=== PATIENT | male | born 1955 | race Hispanic/Latino ===

== ENCOUNTER 2022-12-01 20:33 | Inpatient (IN) | payer OTHER ==
[~2022-12-01] VITALS: Ht 172.7 cm; Wt 63.1 kg
[2022-12-01 21:08] LABS: SARS-CoV-2, RNA, NAAT NEGATIVE SARS CoV-2 (NEGATIVE)
[2022-12-01 21:14] LABS: INFLUENZA TYPE A Negative For Type A (NEGATIVE); INFLUENZA TYPE B Negative For Type B (NEGATIVE)
[2022-12-01 21:48] LABS: BASOPHILS # (AUTO) 0.04 K/uL (0.00-0.20); BASOPHILS % (AUTO) 0.3 % (0.0-5.0); EOSINOPHILS # (AUTO) 0.08 K/uL (0.00-0.70); EOSINOPHILS % (AUTO) 0.5 % (0.0-8.0); HEMATOCRIT 33.8 % (42-54); IMMATURE GRANULOCYTE ABSOLUTE 0.17 K/uL (0-1); LYMPHOCYTES # (AUTO) 0.7 K/uL (1.0-4.8); LYMPHOCYTES % (AUTO) 4.9 % (21.0-51.0); MEAN CORPUSCULAR HEMOGLOBIN 29.2 pg (27.0-33.0); MEAN CORPUSCULAR HGB CONC 34.9 g/dL (32.0-36.0); MEAN CORPUSCULAR VOLUME 83.7 fL (79-99); MONOCYTES # (AUTO) 1.2 K/uL (0.1-1.0); MONOCYTES % (AUTO) 7.7 % (3.0-13.0); NEUTROPHILS # (AUTO) 12.8 K/uL (1.8-7.7); NEUTROPHILS % (AUTO) 85.5 % (40.0-77.0); PLATELET COUNT (AUTO) 389 K/uL (130-400); RED BLOOD CELL COUNT(AUTO) 4.04 MIL/uL (4.50-6.20); RED CELL DISTRIBUTION WIDTH 12.8 % (11.0-15.5)
[2022-12-01] MEDS ORDERED: SODI650T PO (21:55)
[2022-12-01] MEDS ORDERED: PANT20TA18 PO (21:56)
[2022-12-01] MEDS ORDERED: BENZ1TAB83 PO (21:56)
[2022-12-01] MEDS ORDERED: ROSU20TA73 PO (21:57)
[2022-12-01] MEDS ORDERED: LISI5TAB21 PO (21:58)
[2022-12-01] MEDS ORDERED: DIPH1TAB24 PO (21:58)
[2022-12-01] MEDS ORDERED: CARV3.12 PO (21:59)
[2022-12-01] MEDS ORDERED: RISP4TAB73 PO (21:59)
[2022-12-01] MEDS ORDERED: FERS325 PO (22:00)
[2022-12-01] MEDS ORDERED: 0.9%NACL 1000ML 2,000 ML IV ONE (22:00)
[2022-12-01] MEDS ORDERED: TRAM50TA4 PO (22:00)
[2022-12-01] MEDS ORDERED: MESA500C PO (22:01)
[2022-12-01 22:02] LABS: ALBUMIN 3.9 g/dL (3.5-5.0); BILIRUBIN,TOTAL 0.7 mg/dL (0.2-1.0); CREATININE 3.1 mg/dL (0.5-1.5); POTASSIUM 3.9 mmol/L (3.5-5.1); TOTAL PROTEIN, SERUM 8.3 g/dL (6.0-8.3)
[2022-12-02] VITALS (9 sets, daily range): BP systolic 127–157; BP diastolic 62–75; PULSE 77–90; RESP 16–20; O2SAT 95–97
[2022-12-02] MEDS ORDERED: MAGNESIUM 2GM PREMIX 50ML 50 ML IV PRN
[2022-12-02] MEDS: LACTATED RINGERS 1000ML 1,000 ML IV SCH ×3 (00:14→19:27)
[2022-12-02] MEDS ORDERED: HYDROMORPHONE 1 MG INJ IVP STA (02:38)
[2022-12-02 03:42] LABS: BASOPHILS # (AUTO) 0.03 K/uL (0.00-0.20); BASOPHILS % (AUTO) 0.3 % (0.0-5.0); EOSINOPHILS # (AUTO) 0.04 K/uL (0.00-0.70); EOSINOPHILS % (AUTO) 0.4 % (0.0-8.0); HEMATOCRIT 31.9 % (42-54); IMMATURE GRANULOCYTE ABSOLUTE 0.12 K/uL (0-1); LYMPHOCYTES # (AUTO) 0.9 K/uL (1.0-4.8); LYMPHOCYTES % (AUTO) 8.4 % (21.0-51.0); MEAN CORPUSCULAR HEMOGLOBIN 28.9 pg (27.0-33.0); MEAN CORPUSCULAR HGB CONC 34.8 g/dL (32.0-36.0); MEAN CORPUSCULAR VOLUME 83.1 fL (79-99); MONOCYTES # (AUTO) 1.1 K/uL (0.1-1.0); MONOCYTES % (AUTO) 10.4 % (3.0-13.0); NEUTROPHILS # (AUTO) 8.6 K/uL (1.8-7.7); NEUTROPHILS % (AUTO) 79.4 % (40.0-77.0); PLATELET COUNT (AUTO) 362 K/uL (130-400); RED BLOOD CELL COUNT(AUTO) 3.84 MIL/uL (4.50-6.20); RED CELL DISTRIBUTION WIDTH 12.7 % (11.0-15.5); WHITE BLOOD COUNT (AUTO) 10.8 K/uL (4.8-10.8)
[2022-12-02 04:02] LABS: ALBUMIN 3.4 g/dL (3.5-5.0); BILIRUBIN,TOTAL 0.7 mg/dL (0.2-1.0); MAGNESIUM 2.1 mg/dL (1.80-2.40); POTASSIUM 3.1 mmol/L (3.5-5.1); TOTAL PROTEIN, SERUM 7.3 g/dL (6.0-8.3)
[2022-12-02] MEDS: POTASSIUM CHLORIDE 20MEQ/100ML 100 ML IV PRN ×2 (04:14→06:20)
[2022-12-02 06:05] LABS: APPEARANCE,URINE CLOUDY (CLEAR); BILIRUBIN,URINE NEGATIVE (NEGATIVE); COLOR,URINE YELLOW (YELLOW); GLUCOSE, URINE (UA) NEGATIVE (NEGATIVE); KETONES,URINE 5 mg/dL (NEGATIVE); LEUKOCYTE ESTERASE ,URINE NEGATIVE Leu/uL (NEGATIVE); NITRATE,URINE NEGATIVE (NEGATIVE); OCCULT BLOOD,URINE SMALL (NEGATIVE); PROTEIN,URINE 30 mg/dL (NEGATIVE); UROBILINOGEN,URINE 0.2 mg/dL (0.2-1.0)
[2022-12-02 06:08] LABS: ADD UA MICROSCOPIC YES
[2022-12-02 06:10] LABS: MUCUS,URINE RARE LPF (None Seen); SQUAMOUS EPITHELIAL CELL,UR RARE /HPF (0-2)
[2022-12-02] MEDS: METRONIDAZOLE 500MG/100ML BAG 100 ML IVPB SCH ×3 (06:11→20:38)
[2022-12-02] MEDS ORDERED: LACTATED RINGERS 1000ML IV ONE (08:30)
[2022-12-02] MEDS: ONDANSETRON 4MG INJ IV PRN ×2 (08:38→19:36)
[2022-12-02] MEDS: CEFTRIAXONE 1G VIAL IVPB SCH ×2 (08:38→19:27)
[2022-12-02] MEDS: PANTOPRAZOLE 40 MG/VIAL IVP SCH (08:38)
[2022-12-03] VITALS (9 sets, daily range): BP systolic 117–145; BP diastolic 59–73; PULSE 67–84; RESP 16–20; O2SAT 97–98
[2022-12-03 04:38] LABS: INR 1.09 (0.85-1.15); PROTHROMBIN TIME 12.6 SEC (9.6-11.6)
[2022-12-03 04:39] LABS: PARTIAL THROMBOPLASTIN TIME 29.3 SEC (26.3-35.5)
[2022-12-03] MEDS: METRONIDAZOLE 500MG/100ML BAG 100 ML IVPB SCH ×3 (05:04→21:03)
[2022-12-03] MEDS: LACTATED RINGERS 1000ML 1,000 ML IV SCH ×2 (05:04→16:00)
[2022-12-03] MEDS: PANTOPRAZOLE 40 MG/VIAL IVP SCH (08:57)
[2022-12-03] MEDS: CEFTRIAXONE 1G VIAL IVPB SCH ×2 (08:57→19:28)
[2022-12-03 09:20] LABS: BASOPHILS # (AUTO) 0.03 K/uL (0.00-0.20); BASOPHILS % (AUTO) 0.3 % (0.0-5.0); EOSINOPHILS # (AUTO) 0.17 K/uL (0.00-0.70); EOSINOPHILS % (AUTO) 1.9 % (0.0-8.0); HEMATOCRIT 29.4 % (42-54); IMMATURE GRANULOCYTE ABSOLUTE 0.08 K/uL (0-1); LYMPHOCYTES # (AUTO) 1.4 K/uL (1.0-4.8); LYMPHOCYTES % (AUTO) 15.4 % (21.0-51.0); MEAN CORPUSCULAR HEMOGLOBIN 29.6 pg (27.0-33.0); MONOCYTES # (AUTO) 1.1 K/uL (0.1-1.0); MONOCYTES % (AUTO) 12.3 % (3.0-13.0); NEUTROPHILS # (AUTO) 6.1 K/uL (1.8-7.7); NEUTROPHILS % (AUTO) 69.2 % (40.0-77.0); PLATELET COUNT (AUTO) 341 K/uL (130-400); RED BLOOD CELL COUNT(AUTO) 3.38 MIL/uL (4.50-6.20); RED CELL DISTRIBUTION WIDTH 12.9 % (11.0-15.5); WHITE BLOOD COUNT (AUTO) 8.8 K/uL (4.8-10.8)
[2022-12-03 09:29] LABS: ALBUMIN 2.7 g/dL (3.5-5.0); BILIRUBIN,TOTAL 0.6 mg/dL (0.2-1.0); POTASSIUM 3.3 mmol/L (3.5-5.1); TOTAL PROTEIN, SERUM 6.2 g/dL (6.0-8.3)
[2022-12-03] MEDS: POTASSIUM CHLORIDE 20MEQ/100ML 100 ML IV PRN (10:47)
[2022-12-03] MEDS: POTASSIUM CHLORIDE 10% ELIXIR 20 MEQ/15 ML UDCUP PO PRN ×3 (17:38→19:29)
[2022-12-04] VITALS (7 sets, daily range): BP systolic 93–151; BP diastolic 49–87; PULSE 68–89; RESP 16–19; O2SAT 96–98
[2022-12-04] MEDS: LACTATED RINGERS 1000ML 1,000 ML IV SCH ×3 (01:52→22:00)
[2022-12-04 04:21] LABS: BASOPHILS # (AUTO) 0.03 K/uL (0.00-0.20); BASOPHILS % (AUTO) 0.3 % (0.0-5.0); EOSINOPHILS # (AUTO) 0.06 K/uL (0.00-0.70); EOSINOPHILS % (AUTO) 0.6 % (0.0-8.0); HEMATOCRIT 28.3 % (42-54); IMMATURE GRANULOCYTE ABSOLUTE 0.09 K/uL (0-1); LYMPHOCYTES # (AUTO) 1.5 K/uL (1.0-4.8); LYMPHOCYTES % (AUTO) 14.3 % (21.0-51.0); MEAN CORPUSCULAR HEMOGLOBIN 28.9 pg (27.0-33.0); MEAN CORPUSCULAR HGB CONC 33.2 g/dL (32.0-36.0); MEAN CORPUSCULAR VOLUME 87.1 fL (79-99); MONOCYTES # (AUTO) 0.9 K/uL (0.1-1.0); MONOCYTES % (AUTO) 8.5 % (3.0-13.0); NEUTROPHILS # (AUTO) 7.7 K/uL (1.8-7.7); NEUTROPHILS % (AUTO) 75.4 % (40.0-77.0); PLATELET COUNT (AUTO) 252 K/uL (130-400); RED BLOOD CELL COUNT(AUTO) 3.25 MIL/uL (4.50-6.20); RED CELL DISTRIBUTION WIDTH 12.8 % (11.0-15.5); WHITE BLOOD COUNT (AUTO) 10.2 K/uL (4.8-10.8)
[2022-12-04 04:40] LABS: PHOSPHORUS 2.3 mg/dL (2.5-4.9); POTASSIUM 3.8 mmol/L (3.5-5.1)
[2022-12-04] MEDS: METRONIDAZOLE 500MG/100ML BAG 100 ML IVPB SCH ×3 (05:07→23:06)
[2022-12-04] MEDS: PANTOPRAZOLE 40 MG/VIAL IVP SCH (09:57)
[2022-12-04] MEDS: KCL 20 MEQ ERTAB PO PRN ×2 (09:57→12:21)
[2022-12-04] MEDS: CEFTRIAXONE 1G VIAL IVPB SCH ×2 (09:57→22:08)
[2022-12-04] MEDS: RISPERIDONE 1 MG TABLET PO SCH (10:04)
[2022-12-04] MEDS ORDERED: ACETAMINOPHEN 325 MG TAB PO PRN ×3 (12:00→12:30)
[2022-12-04] MEDS: TRAMADOL HCL 50 MG TABLET PO PRN (17:41)
[2022-12-04 18:15] LABS: INR 1.21 (0.85-1.15); PROTHROMBIN TIME 13.9 SEC (9.6-11.6)
[2022-12-04] MEDS ORDERED: MULT-1278 PO (18:46)
[2022-12-04] MEDS ORDERED: CHOL-34 PO (18:46)
[2022-12-05 03:48] VITALS: BP 127/68; PULSE 76; RESP 17
[2022-12-05 04:26] LABS: CREATININE 0.9 mg/dL (0.5-1.5); POTASSIUM 3.9 mmol/L (3.5-5.1)
[2022-12-05 04:40] LABS: % IRON SATURATION 27.7 % (30-44)
[2022-12-05] MEDS: METRONIDAZOLE 500MG/100ML BAG 100 ML IVPB SCH ×2 (06:18→14:12)
[2022-12-05 08:00] VITALS: BP 143/81; PULSE 96; RESP 16; O2SAT 96
[2022-12-05] MEDS: LACTATED RINGERS 1000ML 1,000 ML IV SCH (08:00)
[2022-12-05] MEDS: PANTOPRAZOLE 40 MG/VIAL IVP SCH (09:01)
[2022-12-05] MEDS: CEFTRIAXONE 1G VIAL IVPB SCH (09:02)
[2022-12-05] MEDS: RISPERIDONE 1 MG TABLET PO SCH (09:06)
[2022-12-05] MEDS ORDERED: CHOL-34 PO (11:13)
[2022-12-05] MEDS ORDERED: COMPOUND IV REFRIGERATED 1 EACH IVSOLN MISC PRN (11:30)
[2022-12-05 12:00] VITALS: BP 123/64; PULSE 97; RESP 16
[2022-12-05] MEDS ORDERED: NACL 0.9% IV ONE (14:00)
[2022-12-05] MEDS ORDERED: IRON SUCROSE COMPLEX IV ONE (14:00)
[2022-12-05] MEDS: TRAMADOL HCL 50 MG TABLET PO PRN (14:31)
[2022-12-05 16:00] VITALS: BP 136/74; PULSE 80; RESP 16
== END 2022-12-05 18:30 | disposition home health service (06) | DRG 393 ==
LOC: EDH 20:33 → EDHIP 23:52 → 4BH 12-02 00:42
PROVIDERS: ADMIT Hospitalist; ATTEND Hospitalist
DX: K43.6 Other and unspecified ventral hernia with obstruction, without gangrene (principal); N17.0 Acute kidney failure with tubular necrosis; E87.1 Hypo-osmolality and hyponatremia; K56.609 Unspecified intestinal obstruction, unspecified as to partial versus complete obstruction; D64.9 Anemia, unspecified; E86.0 Dehydration; E86.1 Hypovolemia; I10 Essential (primary) hypertension; Z20.822 Contact with and (suspected) exposure to COVID-19; D50.9 Iron deficiency anemia, unspecified; E11.9 Type 2 diabetes mellitus without complications; E78.00 Pure hypercholesterolemia, unspecified; F17.210 Nicotine dependence, cigarettes, uncomplicated; I25.10 Atherosclerotic heart disease of native coronary artery without angina pectoris; I45.10 Unspecified right bundle-branch block; K31.89 Other diseases of stomach and duodenum; K52.9 Noninfective gastroenteritis and colitis, unspecified; Z93.2 Ileostomy status
CPT/HCPCS: 36415; 74176; 76770; 80048; 80053; 81001; 83540; 83550; 83690; 83735; 84100; 84132; 84145; 84484; 85025; 85610; 85730; 86140; 87040; 87077; 87088; 87186; 87635; 87804; 93005; C1894; C9113; C9803; G0378; J0696; J1170; J1756; J2405; J3480; J3490; J7050; C1750

== ENCOUNTER 2023-10-16 08:40 | Day surgery (SDC) | payer OTHER ==
[2023-10-16] VITALS (12 sets, daily range): BP systolic 114–160; BP diastolic 56–86; PULSE 59–78; RESP 12–18; TEMP 97.1–98.1
[~2023-10-16] VITALS: Ht 172.7 cm; Wt 68.0 kg
[~2023-10-16 08:40] MED LIST: BENZ1TAB83 PO; CARV3.12 PO; CHOL-34 PO; DIPH-1150 PO; FERS325 PO; LISI5TAB21 PO; MESA500C PO; MULT-1278 PO; PANT20TA18 PO; RISP4TAB94 PO; ROSU20TA73 PO; SODI650T PO; TRAM50TA4 PO
[2023-10-16] MEDS ORDERED: BENZTROPINE PO (09:33)
[2023-10-16] MEDS ORDERED: CHOL5POW MC (09:33)
[2023-10-16] MEDS: 0.9%NACL 1000ML 1,000 ML IV ONE (10:03)
[2023-10-16] MEDS ORDERED: proPOFol 10 MG/ML 20ML VIAL IV ONE ×2 (11:13)
[2023-10-16] MEDS ORDERED: LIDOCAINE PF 100MG/5ML (2%) SYRINGE 5ML ONE (11:13)
[2023-10-16] MEDS ORDERED: phenylEPHRINE HCL 10 MG/ML 1ML VIAL IV ONE (11:14)
== END 2023-10-16 12:50 | disposition home or self-care (01) ==
LOC: DAH 08:40
PROVIDERS: ATTEND Surgery
DX: K51.90 Ulcerative colitis, unspecified, without complications (principal); K63.89 Other specified diseases of intestine; K56.699 Other intestinal obstruction unspecified as to partial versus complete obstruction; K52.9 Noninfective gastroenteritis and colitis, unspecified; L29.0 Pruritus ani; I10 Essential (primary) hypertension; F20.9 Schizophrenia, unspecified; E11.9 Type 2 diabetes mellitus without complications; E78.5 Hyperlipidemia, unspecified; F17.210 Nicotine dependence, cigarettes, uncomplicated; Z86.19 Personal history of other infectious and parasitic diseases; Z90.49 Acquired absence of other specified parts of digestive tract; Z96.643 Presence of artificial hip joint, bilateral; Z79.899 Other long term (current) drug therapy
CPT/HCPCS: 44386; 82948; J7030 ×2; J2001; J2704 ×2; J2371; A4620; A4215 ×2; A4223; A4657; A4222; A4221; A4663; A4606; J3490